=== PATIENT | male | born 2000 | race African-American/Black ===

== ENCOUNTER 2018-02-20 10:00 | Emergency (ER) | payer OTHER ==
[~2018-02-20] VITALS: Ht 167.6 cm; Wt 81.7 kg
[2018-02-20] MEDS ORDERED: TRAZ100 PO (10:09)
[2018-02-20] MEDS ORDERED: VYVANSE40 MG PO ×2 (10:10→11:01)
[2018-02-20] MEDS ORDERED: INTUNIV3 MG PO (10:10)
== END 2018-02-20 11:26 | disposition home or self-care (01) ==
LOC: ER 10:00
DX: Z76.0 Encounter for issue of repeat prescription (principal); F90.9 Attention-deficit hyperactivity disorder, unspecified type; Z79.899 Other long term (current) drug therapy; Z87.891 Personal history of nicotine dependence
CPT/HCPCS: 99281